=== PATIENT | male | born 1955 | race Caucasian/White ===

== ENCOUNTER 2018-11-27 00:40 | Inpatient (IN) ==
--- NOTE | 2018-11-27 01:02 | Emergency Department Note ---
Disposition Clinical Impression: Cellulitis of left groin Disposition: Admitted As Inpatient Condition: Fair Referrals: Armando Guevara CNP [Primary Care Provider] - Forms: ED Satisfaction Letter Extremity Problem HPI - General Chief complaint: ED General Medical Stated complaint: right toe pain, bilateral leg numbness Time Seen by Provider: 11/27/18 00:54 Source: patient Mode of arrival: private vehicle Limitations: no limitations Nursing Notes Reviewed: Yes Vital Signs Reviewed: Yes - History of Present Illness HPI Narrative: Patient arrives by private vehicle with a history initially of his been having some pain in his legs has been more in the right than left. He states his right toes seem to be somewhat cool and that it has primarily been his feet that have been hurting. He states that pain seems to be worse when he is laying down and that he is not having claudication symptoms. He has not had discoloration or any injury. He states this is currently normal, warm and not hurting. He does go on to explain in the room that he has also been having pain in his left groin for 2-3 days. He has had swelling, redness and some clear drainage. He denies any injury. He denies any difficulty with urination or defecation. He has had questionable fever and some chills. He has not checked his temperature. He has had occasional sweats. He arrives tonight primarily because of the increased pain and swelling in the groin and nothing to do with his legs. With this he denies any pain to the abdomen, nausea or vomiting. He denies chest pain or palpitations. He does have occasional shortness of breath. He denies any peripheral vascular disease or stents. He denies diabetes. He has no other area of redness or swelling. Pt Subjective Complaint: extremity pain, other (Groin swelling) Onset (ago): week(s) (1) Consistency: constant, Worsening Pain Scale: 8 Quality: aching Radiation: none Improves with: rest Worsens with: range of motion, palpation Associated symptoms: Reports: shortness of breath, abdominal pain (The left groin), fever, change in appearance, swelling, redness. Denies: chest pain, back pain, bowel/bladder symptoms, myalgias, arthralgias, rash - Related Data Home Medications Medication Instructions Recorded Confirmed ALPRAZolam [Xanax 1 MG Tablet] 1 mg PO TID 05/31/17 09/10/18 Albuterol Sulfate [Albuterol 2 puff IH Q6HR 05/31/17 09/10/18 Inhaler] Aspirin [Ecotrin] 325 mg PO DAILY 05/31/17 09/10/18 Celecoxib [Celebrex] 200 mg PO DAILY 05/31/17 09/10/18 Cholecalciferol (Vitamin D3) 2 gm MC DAILY 05/31/17 09/10/18 [Cholecalciferol] Gabapentin [Neurontin] 300 mg PO TID 05/31/17 09/10/18 Isosorbide MONOnitrate (24 HR) 60 mg PO BID 05/31/17 09/10/18 [Imdur] Metoprolol Succinate 100 mg PO DAILY 05/31/17 09/10/18 Niacin [Niaspan] 3 cap PO BID 05/31/17 09/10/18 Nitroglycerin [Nitrostat] 0.4 mg SL Q5M PRN 05/31/17 09/10/18 Omeprazole [PriLOSEC] 40 mg PO DAILY 05/31/17 09/10/18 Pravastatin Sodium [Pravachol] 40 mg PO QPM 05/31/17 09/10/18 Ramipril [Altace] 10 mg PO DAILY 05/31/17 09/10/18 Temazepam [Restoril] 30 mg PO HS 05/31/17 09/10/18 Tizanidine HCl 4 mg PO Q8H 05/31/17 09/10/18 amLODIPine [Norvasc] 10 mg PO DAILY 05/31/17 09/10/18 hydroCHLOROthiazide 25 mg PO DAILY 05/31/17 09/10/18 [Hydrochlorothiazide] Previous Rx's Medication Instructions Recorded Cyclobenzaprine [Flexeril] 10 mg PO TID PRN #15 tablet 05/31/17 Naproxen [Naprosyn] 500 mg PO BID PRN #20 tablet 05/31/17 Allergies Allergy/AdvReac Type Severity Reaction Status Date / Time No Known Allergies Allergy Verified 11/27/18 00:41 All systems ED: reviewed and negative except as stated. Past Medical History - Past Medical History Attestation: Yes The following information was validated with the patient. Source: patient, old records reviewed, nursing notes reviewed Medical history: Reports: arthritis, coronary artery disease, GERD, hyperlipidemia, hypertension, migraine, myocardial infarction. Denies: diabetes Surgical history: Reports: angioplasty/stent, cholecystectomy, coronary bypass (CABG), orthopedic, other (Left knee scope.) Psychiatric history: Reports: anxiety - Social History Smoking Status: Former smoker Smokeless Tobacco Status: No Alcohol use: Reports: none Drug use: Reports: none Physical Exam - General Limitations: no limitations General appearance: alert, in no apparent distress - Head Head exam: atraumatic, normocephalic, normal inspection - Eye Eye exam: Present: normal appearance, PERRL, EOMI - ENT ENT exam: normal exam, normal oropharynx, mucous membranes moist - Neck Neck exam: Present: normal inspection, full ROM, trachea midline. Absent: tenderness, meningismus, lymphadenopathy - Chest Chest inspection: Present: normal inspection, symmetric chest wall rise. Absent: tenderness - Respiratory Respiratory exam: Present: normal lung sounds bilaterally. Absent: respiratory distress, wheezes, prolonged expiratory phase - Cardiovascular Cardiovascular exam: Present: regular rate, normal rhythm, tachycardia, normal heart sounds - Abdominal Exam Abdominal exam: Present: soft, Non-Tender, normal bowel sounds. Absent: tenderness, distention, guarding, rebound, rigidity - Extremities Exam Extremities exam: Present: normal inspection, full ROM, normal capillary refill. Absent: tenderness, pedal edema, calf tenderness - Expanded Lower Extremity Exam Hip/Pelvis exam: Present: tenderness, swelling, erythema, other (Patient has induration and swelling in the left groin region. He has some superficial excoriations skin superior and medial to the base of the penis where there appears to have been some serous drainage and crusting. There is no area of fluctuance or definite abscess at this time.). Absent: full ROM Upper leg exam: Present: normal inspection, full ROM. Absent: tenderness, swelling Knee exam: Present: normal inspection, full ROM, knee extension intact. Absent: tenderness, swelling Lower leg exam: Present: normal inspection, full ROM. Absent: tenderness, swelling, dislocation, erythema, palpable cord, Homans' sign Ankle exam: Present: normal inspection, full ROM. Absent: tenderness, swelling Foot/toe exam: Present: normal inspection, full ROM. Absent: tenderness, swelling Neurovascular/Tendon exam: Present: normal capillary refill, other (Bilateral feet are warm without any discoloration.). Absent: pulse deficit (Patient has bounding bilateral dorsalis pedis pulses.), motor deficit, sensory deficit, tendon deficit Gait: antalgic - Back Exam Back exam: Present: normal inspection, full ROM. Absent: tenderness - Neurological Exam Neurological exam: Present: alert, oriented X3 - Psychiatric Psychiatric exam: Present: normal affect, normal mood - Skin Skin exam: Present: warm, dry, intact, normal color. Absent: diaphoresis, pallor Course Course Narrative: 0125: My preliminary review of the CT pelvis is discussed with the patient. He appears to have cellulitis without abscess or Harmeet's gangrene. I recommended IV antibiotics and inpatient observation to show some improvement to the area prior to discharge to home. He is agreeable with this. I am awaiting return of lab work and we will discuss care with Dr. Joseph. 0215: With return of laboratory testing, care has been discussed with Dr. Joseph. Verbal orders have been obtained for his inpatient observation. Dr. Joseph did wish to have him started additionally on Rocephin and this has been ordered for the first dose starting in the emergency department. Vital Signs Temperature 97.9 F 11/27/18 00:42 Pulse Rate 107 11/27/18 00:42 Respiratory Rate 18 11/27/18 00:42 Blood Pressure 152/81 11/27/18 00:42 O2 Sat by Pulse Oximetry 91 11/27/18 00:42 Temperature 97.9 F 11/27/18 00:42 Pulse Rate 107 11/27/18 00:42 Respiratory Rate 18 11/27/18 00:42 Blood Pressure 152/81 11/27/18 00:42 O2 Sat by Pulse Oximetry 91 11/27/18 00:42 Oxygen Delivery Oxygen Delivery Room Air Extremity Problem, Nontraumati - Differential Diagnosis Likely: cellulitis (Abscess, Harmeet's gangrene), occult trauma, arterial vascular disorder - Medical Records Medical records reviewed: Yes I reviewed the patient's medical records. - Lab Data Lab results reviewed: Yes I reviewed the patient's lab results. Result diagrams: 11/27/18 01:30 11/27/18 01:30 Lab Results 11/27/18 11/27/18 11/27/18 Range/Units 01:30 01:30 01:30 WBC 32.2 H* (4.3-11.1) K/mcL RBC 4.66 (4.19-5.50) M/mcL Hgb 13.9 (12.9-16.9) g/dL Hct 40.1 (37.5-50.1) % MCV 86.1 (83.0-100.0) fL MCH 29.8 (28.0-33.3) pg MCHC 34.7 (31.6-35.5) g/dL RDW 12.9 (11.5-14.5) % Plt Count 190 (140-400) K/mcL MPV 9.3 L (9.4-12.4) fL Sodium 132 L (136-145) mEq/L Potassium 3.3 L (3.5-5.1) mEq/L Chloride 98 (98-107) mEq/L Carbon Dioxide 26 (23-29) mEq/L BUN 16 (8-23) mg/dL Creatinine 0.89 (0.70-1.30) mg/dL Est GFR ( Amer) > 60 (> 60) Est GFR (Non-Af Amer) > 60 (> 60) BUN/Creatinine Ratio 18 (6-26) Glucose 162 H (70-105) mg/dL Calculated Osmolality 279 L (280-300) Lactic Acid (0.5-2.2) mmol/L Calcium 8.6 (8.6-10.3) mg/dL Troponin I < 0.03 (< 0.04) ng/mL 11/27/18 Range/Units 01:43 WBC (4.3-11.1) K/mcL RBC (4.19-5.50) M/mcL Hgb (12.9-16.9) g/dL Hct (37.5-50.1) % MCV (83.0-100.0) fL MCH (28.0-33.3) pg MCHC (31.6-35.5) g/dL RDW (11.5-14.5) % Plt Count (140-400) K/mcL MPV (9.4-12.4) fL Sodium (136-145) mEq/L Potassium (3.5-5.1) mEq/L Chloride (98-107) mEq/L Carbon Dioxide (23-29) mEq/L BUN (8-23) mg/dL Creatinine (0.70-1.30) mg/dL Est GFR ( Amer) (> 60) Est GFR (Non-Af Amer) (> 60) BUN/Creatinine Ratio (6-26) Glucose (70-105) mg/dL Calculated Osmolality (280-300) Lactic Acid 1.2 (0.5-2.2) mmol/L Calcium (8.6-10.3) mg/dL Troponin I (< 0.04) ng/mL - Radiology Data Radiology results reviewed: Yes I reviewed the patient's radiology results. CT is performed of the pelvis without IV or oral contrast. This does demonstrate soft tissue swelling and edema in the left groin. This does not involve the scrotal sac and there is no evidence for subcutaneous air or abscess. This is most consistent with a cellulitis. The remainder this study appears normal. This is on my interpretation. Impressions Pelvis CT 11/27/18 01:02 IMPRESSION: 1. Left inguinal cellulitis without soft tissue gas or focal fluid collection. 2. Diverticulosis without scan evidence for diverticulitis. 3. Nonspecific lesion in the left iliac wing. D/ / Brenden Lin MD / Brenden Lin MD Interpreting Provider: Brenden Lin MD - EKG Data EKG attestation: Yes I reviewed and interpreted this EKG. EKG shows normal: sinus rhythm, intervals, QRS complexes, ST-T waves Rate: tachycardia (101) [place]/QRS: right axis deviation Interpretation: no acute changes, nonspecific ST-T wave changes
[2018-11-27] MEDS ORDERED: 0.9 % Sodium Chloride 1,000 ML IVC SCH ×2 (01:15→03:19)
[2018-11-27 02:01] LABS: Hematocrit 40.1 % (37.5-50.1); Hemoglobin 13.9 g/dL (12.9-16.9); Mean Corpuscular HGB Conc 34.7 g/dL (31.6-35.5); Mean Corpuscular Hemoglobin 29.8 pg (28.0-33.3); Mean Corpuscular Volume 86.1 fL (83.0-100.0); Mean Platelet Volume 9.3 fL (9.4-12.4); Platelet Count 190 K/mcL (140-400); Red Blood Count 4.66 M/mcL (4.19-5.50); Red Cell Distribution Width 12.9 % (11.5-14.5)
[2018-11-27] MEDS ORDERED: cefTRIAXone 2,000 MG in 0.9 % Sodium Chloride Mini Bag 100 ML IVPB ONE ×2 (02:06→03:19)
[2018-11-27 02:14] LABS: BUN/Creatinine Ratio 18 (6-26); Blood Urea Nitrogen 16 mg/dL (8-23); Calcium 8.6 mg/dL (8.6-10.3); Carbon Dioxide 26 mEq/L (23-29); Chloride 98 mEq/L (98-107); Glucose 162 mg/dL (70-105); Osmolality,Calculated 279 (280-300); Potassium 3.3 mEq/L (3.5-5.1); Sodium 132 mEq/L (136-145); eGFR For Non-African Americans > 60 (> 60)
[2018-11-27] MEDS ORDERED: *HR* OxyCODONE/APAP 10/325 TABLET PO ONE ×2 (02:17→03:19)
[2018-11-27 02:35] LABS: Dohle Bodies Present (Not Present); Large Platelets Present (Not Present); Lymphocytes # 0.6 K/mcL (0.6-4.6); Neutrophils # 31.6 K/mcL (1.6-8.9); Platelet Estimate Normal (Normal); Toxic Granulation Present (Not Present); Toxic Vacuolation Present (Not Present)
[2018-11-27] MEDS ORDERED: Mag Hydrox/Al Hydrox/Simeth 30 ML UDC PO PRN (03:19)
[2018-11-27] MEDS ORDERED: *HR* HYDROcodone/Acet 5/325 mg TABLET PO PRN (03:19)
[2018-11-27] MEDS ORDERED: Acetaminophen 325 MG TABLET PO PRN (03:19)
[2018-11-27] MEDS ORDERED: *HR* OxyCODONE Immed Rel 5 MG TABLET PO PRN (03:19)
[2018-11-27] MEDS ORDERED: Naloxone 0.4 MG/ML INJ IVP PRN (03:19)
[2018-11-27] MEDS ORDERED: Ondansetron 4 MG/2 ML VIAL IVP PRN (03:19)
[2018-11-27] MEDS ORDERED: MOM Conc 10 ML UD.LIQ PO PRN (03:19)
[2018-11-27] MEDS ORDERED: Albuterol 2.5 MG/3 ML NEBULIZER IH PRN (03:19)
[2018-11-27] MEDS ORDERED: cefTRIAXone 2,000 MG in 0.9 % Sodium Chloride Mini Bag 100 ML IVPB SCH (04:00)
[2018-11-27] MEDS ORDERED: Temazepam 15 MG CAPSULE PO PRN (11:07)
[2018-11-27] MEDS ORDERED: tiZANidine 4 MG TABLET PO PRN (11:07)
--- NOTE | 2018-11-27 11:14 | Internal Med History&Physical ---
Date of Encounter: 11/27/18 Time of Encounter: 10:35 Assessment and Plan (1) Cellulitis of left groin Current visit: Yes Status: Acute He has been started on IV vancomycin and Rocephin. Lactobacillus will be added. (2) Hypertension Current visit: Yes Status: Chronic Continue ACEI, metoprolol, amlodipine, and Imdur. Qualifiers: Hypertension type: essential hypertension Qualified Code(s): I10 - Essential (primary) hypertension (3) DJD (degenerative joint disease) Current visit: Yes Status: Acute He will be given a trial of Naprosyn since Celebrex was not fully effective. Qualifiers: Osteoarthritis location: multiple joints Osteoarthritis type: primary Qualified Code(s): M15.0 - Primary generalized (osteo)arthritis (4) Hypokalemia Current visit: Yes Status: Acute Supplemental potassium will be given and labs rechecked in a.m. HCTZ will be held. (5) CAD (coronary artery disease) Current visit: Yes Status: Acute Continue Imdur and Lopressor. Qualifiers: Coronary Disease-Associated Artery/Lesion type: unspecified vessel or lesion type [place] vs. transplanted heart: [place] heart Associated angina: without angina Qualified Code(s): I25.10 - Atherosclerotic heart disease of [place] coronary artery without angina pectoris Internal Medicine - H&P: HPI Chief complaint: Left groin infection Admitted From: Emergency Dept Plans for Post Hospital Care: Home History of present illness: Mr. Barlow is a 63 year old male who came to emergency room stating he had increasing redness and pain in his left groin onset the evening of November 24. He felt fever but denies chills. He came to emergency room and was evaluated and was found to have significant left groin cellulitis. He had significant leuko cytosis with left shift on differential. He was admitted to MedSurg floor for IV antibiotics and ongoing care needs. Past Med Surg Social Fam HX - Past Medical History Medical history: arthritis, coronary artery disease, GERD, hyperlipidemia, hypertension, migraine, myocardial infarction Psychiatric history: anxiety - Past Surgical History Surgical History: angioplasty/stent, cholecystectomy, coronary bypass (CABG), orthopedic, other Additional surgical history: left knee scope - Social History Smoking Status: Former smoker Smokeless Tobacco Status: No Alcohol use: none Drug use: none Internal Medicine - H&P: Meds ALPRAZolam [Xanax 1 MG Tablet] 1 mg PO TID 05/31/17 [History] Albuterol Sulfate [Albuterol Inhaler] 2 puff IH Q6HR 05/31/17 [History] Aspirin [Ecotrin] 325 mg PO DAILY 05/31/17 [History] Celecoxib [Celebrex] 200 mg PO DAILY 05/31/17 [History] Cholecalciferol (Vitamin D3) [Cholecalciferol] 2 gm MC DAILY 05/31/17 [History] Cyclobenzaprine [Flexeril] 10 mg PO TID PRN #15 tablet 05/31/17 [Rx] Gabapentin [Neurontin] 300 mg PO TID 05/31/17 [History] Isosorbide MONOnitrate (24 HR) [Imdur] 60 mg PO BID 05/31/17 [History] Metoprolol Succinate 100 mg PO DAILY 05/31/17 [History] Naproxen [Naprosyn] 500 mg PO BID PRN #20 tablet 05/31/17 [Rx] Niacin [Niaspan] 3 cap PO BID 05/31/17 [History] Nitroglycerin [Nitrostat] 0.4 mg SL Q5M PRN 05/31/17 [History] Omeprazole [PriLOSEC] 40 mg PO DAILY 05/31/17 [History] Pravastatin Sodium [Pravachol] 40 mg PO QPM 05/31/17 [History] Ramipril [Altace] 10 mg PO DAILY 05/31/17 [History] Temazepam [Restoril] 30 mg PO HS 05/31/17 [History] Tizanidine HCl 4 mg PO Q8H 05/31/17 [History] amLODIPine [Norvasc] 10 mg PO DAILY 05/31/17 [History] hydroCHLOROthiazide [Hydrochlorothiazide] 25 mg PO DAILY 05/31/17 [History] Allergy/AdvReac Type Severity Reaction Status Date / Time No Known Allergies Allergy Verified 11/27/18 00:41 All Systems PM: A 10-system review of systems was performed and is negative for pertinent findings except as documented above in the HPI. Review of systems: Gen.: He states his weight has been stable for several months Cardiovascular: He has hypertension and ASHD status post IN 2004 followed by four-vessel CABG. He has had a total of 5 stents placed. He reports angioplasty a few months ago without additional stent placed. He denies heart failure DVT or pulmonary embolus Respiratory: He smoked for approximate 20 years ending at age 50. He smoked up to 2.5 packs per day. He denies chronic lung disease. He has diagnoses of ALEJANDRA but could not tolerate BiPAP. He uses oxygen at bedtime. GI: He has had cholecystectomy. He denies disorders of his liver or exocrine pancreas : He reports a kidney stone approximately 25 years ago without recurrence. He denies other kidney bladder prostate disorders Neurologic: He denies large distribution strokes or seizures. Endocrine: He has hyperlipidemia but denies diabetes or thyroid disease Hematology/oncology: He denies blood disorders cancers or anemia Psychiatric: He has anxiety but denies depression or other mental health issues [place] skeletal: He has DJD and has had bilateral carpal tunnel surgery. He had left knee arthroscopic evaluation in the past. He denies a diagnosis of gout - Constitutional Vitals: Temp Pulse Resp BP Pulse Ox 97.7 F 88 18 129/73 92 11/27/18 06:29 11/27/18 06:29 11/27/18 06:29 11/27/18 06:29 11/27/18 06:29 Exam: Gen.: He is a well-developed overweight male lying in bed who appears in mild distress complaining of pain in his left groin HEENT: Head is atraumatic and normocephalic. Eyes: EOMI. There is no scleral icterus. Mouth: Mucosa is moist. Neck: Supple and nontender. There is no thyromegaly or adenopathy noted. Heart: Regular without murmurs gallops or ectopics Lungs: No wheezes or crackles are heard. Abdomen: Soft and nontender. No masses or guarding are noted. Extremities: There is no cyanosis edema or clubbing noted. Dorsalis pedis and posterior tibial pulses are 2 over 2 bilaterally. Neurologic: Mental status: He is talkative and a good historian. Cranial nerves: Smile is symmetric. Forehead wrinkles bilaterally. Tongue protrudes midline. EOMI. Motor: There is no pronator drift. Cerebellar: Finger to nose is intact bilaterally. Skin: He has an inflammatory area in his left groin measuring approximately 15 cm maximum diameter. There is erythema, induration and tenderness to palpation. Otherwise skin is warm and dry Internal Med - H&P Results - Labs CBC & Chem 7: 11/27/18 01:30 11/27/18 01:30 Labs: Short CBC 11/27/18 Range/Units 01:30 WBC 32.2 H* (4.3-11.1) K/mcL Hgb 13.9 (12.9-16.9) g/dL Hct 40.1 (37.5-50.1) % Plt Count 190 (140-400) K/mcL Neutrophils # 31.6 H (1.6-8.9) K/mcL BMP 11/27/18 01:30 Sodium 132 L Potassium 3.3 L Chloride 98 Carbon Dioxide 26 BUN 16 Creatinine 0.89 Glucose 162 H Calcium 8.6 Cardiac Enzymes 11/27/18 Range/Units 01:30 Troponin I < 0.03 (< 0.04) ng/mL - Impressions ITS Impressions Pelvis CT 11/27/18 01:02 IMPRESSION: 1. Left inguinal cellulitis without soft tissue gas or focal fluid collection. 2. Diverticulosis without scan evidence for diverticulitis. 3. Nonspecific lesion in the left iliac wing. D/ / Brenden Lin MD / Brenden Lin MD Interpreting Provider: Brenden Lin MD
[2018-11-27] MEDS: Isosorbide MONOnitrate (24 HR) 60 MG TAB.ER.24H PO SCH ×2 (12:40→19:53)
[2018-11-27] MEDS: *HR* OxyCODONE/APAP 10/325 TABLET PO PRN ×2 (12:41→19:53)
[2018-11-27] MEDS: Metoprolol XL (24 HR) Succ 50 MG TAB.ER.24H PO SCH (12:41)
[2018-11-27] MEDS: ALPRAZolam 1 MG TABLET PO SCH ×2 (15:24→19:53)
[2018-11-27] MEDS: Gabapentin 300 MG CAPSULE PO SCH ×2 (15:24→19:53)
[2018-11-28] MEDS: *HR* OxyCODONE/APAP 10/325 TABLET PO PRN ×3 (02:50→17:36)
[2018-11-28] MEDS ORDERED: cefTRIAXone 2,000 MG in Water for inj. (sterile) 20 ML 20 ML IVPB SCH (04:00)
[2018-11-28 06:34] LABS: Basophils # 0.1 K/mcL (0.0-0.2); Basophils % 0.3 %; Eosinophils # 0.1 K/mcL (0.0-0.6); Eosinophils % 0.5 %; Hematocrit 39.3 % (37.5-50.1); Immature Granulocytes % 7.7 % (0-4); Lymphocytes # 0.8 K/mcL (0.6-4.6); Lymphocytes % 3.2 %; Mean Corpuscular HGB Conc 33.1 g/dL (31.6-35.5); Mean Corpuscular Hemoglobin 29.1 pg (28.0-33.3); Mean Corpuscular Volume 88.1 fL (83.0-100.0); Mean Platelet Volume 9.9 fL (9.4-12.4); Monocytes # 1.4 K/mcL (0.0-1.3); Monocytes % 5.3 %; Neutrophils # 21.2 K/mcL (1.6-8.9); Platelet Count 184 K/mcL (140-400); Red Blood Count 4.46 M/mcL (4.19-5.50); Red Cell Distribution Width 13.3 % (11.5-14.5)
[2018-11-28 07:06] LABS: Alanine Aminotransferase 15 Units/L (7-52); Albumin 3.4 g/dL (3.5-5.7); Albumin/Globulin Ratio 1.3 (1.1-2.2); Alkaline Phosphatase 85 Units/L (34-104); Aspartate Amino Transferase 7 Units/L (13-39); BUN/Creatinine Ratio 19 (6-26); Bilirubin,Total 0.6 mg/dL (0.3-1.0); Blood Urea Nitrogen 13 mg/dL (8-23); Calcium 8.6 mg/dL (8.6-10.3); Carbon Dioxide 26 mEq/L (23-29); Chloride 102 mEq/L (98-107); Globulin 2.6 g/dL (2.4-3.5); Glucose 180 mg/dL (70-105); Osmolality,Calculated 285 (280-300); Potassium 3.7 mEq/L (3.5-5.1); Sodium 135 mEq/L (136-145); eGFR For Non-African Americans > 60 (> 60)
[2018-11-28 07:19] LABS: Thyroid Stimulating Hormone 1.955 mcIU/mL (0.340-5.600)
[2018-11-28 07:46] LABS: Anisocytosis 1+ (Not Present); Dohle Bodies Present (Not Present); Platelet Estimate Normal (Normal); Toxic Granulation Present (Not Present); Toxic Vacuolation Present (Not Present)
[2018-11-28] MEDS: Isosorbide MONOnitrate (24 HR) 60 MG TAB.ER.24H PO SCH ×2 (07:52→20:39)
[2018-11-28] MEDS: Metoprolol XL (24 HR) Succ 50 MG TAB.ER.24H PO SCH (07:52)
[2018-11-28] MEDS: amLODIPine 5 MG TABLET PO SCH (07:52)
[2018-11-28] MEDS: Gabapentin 300 MG CAPSULE PO SCH ×3 (07:52→20:39)
[2018-11-28] MEDS: ALPRAZolam 1 MG TABLET PO SCH ×3 (07:52→20:39)
[2018-11-28] MEDS: cefTRIAXone 2,000 MG in Water for inj. (sterile) 20 ML 20 ML IVPB SCH (07:53)
--- NOTE | 2018-11-28 09:30 | Internal Med Progress Note ---
Date of Encounter: 11/28/18 Time of Encounter: 09:20 - Assessment and plan (1) Cellulitis of left groin Current Visit: Yes Status: Acute Assessment and plan: November 28. Continue IV vancomycin and Rocephin with lactobacillus. Culture will be done of the drainage. (2) Hypertension Current Visit: Yes Status: Chronic Assessment and plan: November 28. Continue ACEI, metoprolol, amlodipine, and Imdur. Qualifiers: Hypertension type: essential hypertension Qualified Code(s): I10 - Essent ial (primary) hypertension (3) DJD (degenerative joint disease) Current Visit: Yes Status: Acute Assessment and plan: November 28. Continue Naprosyn scheduled and other analgesics as needed. Qualifiers: Osteoarthritis location: multiple joints Osteoarthritis type: primary Qualified Code(s): M15.0 - Primary generalized (osteo)arthritis (4) Hypokalemia Current Visit: Yes Status: Acute Assessment and plan: November 28. Resolved. Remain off HCTZ and continue to monitor. (5) CAD (coronary artery disease) Current Visit: Yes Status: Acute Assessment and plan: November 28. Continue Imdur, Lopressor, and Effient Qualifiers: Coronary Disease-Associated Artery/Lesion type: unspecified vessel or lesion type [place] vs. transplanted heart: [place] heart Associated angina: without angina Qualified Code(s): I25.10 - Atherosclerotic heart disease of [place] coronary artery without angina pectoris - Subjective Interval history: November 28. He has no new complaints. He states the pain in his left groin has slightly decreased. He has noticed some drainage from the area. - Constitutional Vitals: Temp Pulse Resp BP Pulse Ox 97.9 F 81 18 118/71 95 11/28/18 06:51 11/28/18 06:51 11/28/18 06:51 11/28/18 06:51 11/28/18 06:51 Exam: He is resting comfortably in bed. His left groin shows slight decrease in the induration and erythema. There is a small amount of bloody purulent drainage expressed from the inflamed area. I reviewed his medications and lab results. Internal Medicine: Result - Labs CBC & Chem 7: 11/28/18 06:05 11/28/18 06:05 Labs: Short CBC 11/28/18 Range/Units 06:05 WBC 25.5 H (4.3-11.1) K/mcL Hgb 13.0 (12.9-16.9) g/dL Hct 39.3 (37.5-50.1) % Plt Count 184 (140-400) K/mcL Neutrophils # 21.2 H (1.6-8.9) K/mcL BMP 11/28/18 06:05 Sodium 135 L Potassium 3.7 Chloride 102 Carbon Dioxide 26 BUN 13 Creatinine 0.68 L Glucose 180 H Calcium 8.6 Liver Function 11/28/18 Range/Units 06:05 Total Bilirubin 0.6 (0.3-1.0) mg/dL AST 7 L (13-39) Units/L ALT 15 (7-52) Units/L Alkaline Phosphatase 85 (34-104) Units/L Albumin 3.4 L (3.5-5.7) g/dL Consult Discharge Plan - Plan Referrals: Armando Guevara, COMMUNITY HEALTH ADVISOR [Primary Care Provider] - 1 week
[2018-11-28] MEDS: Lactobacillus 1 EACH CAP.SPRINK PO SCH ×2 (11:26→20:39)
[2018-11-29] MEDS: *HR* OxyCODONE/APAP 10/325 TABLET PO PRN ×4 (00:15→20:07)
[2018-11-29 06:09] LABS: Basophils # 0.1 K/mcL (0.0-0.2); Basophils % 0.5 %; Eosinophils # 0.3 K/mcL (0.0-0.6); Eosinophils % 1.5 %; Hematocrit 37.6 % (37.5-50.1); Hemoglobin 12.2 g/dL (12.9-16.9); Immature Granulocytes % 1.1 % (0-4); Lymphocytes # 0.9 K/mcL (0.6-4.6); Lymphocytes % 5.3 %; Mean Corpuscular HGB Conc 32.4 g/dL (31.6-35.5); Mean Corpuscular Hemoglobin 28.9 pg (28.0-33.3); Mean Corpuscular Volume 89.1 fL (83.0-100.0); Monocytes # 0.9 K/mcL (0.0-1.3); Monocytes % 4.9 %; Neutrophils # 15.4 K/mcL (1.6-8.9); Platelet Count 183 K/mcL (140-400); Red Blood Count 4.22 M/mcL (4.19-5.50); Red Cell Distribution Width 13.3 % (11.5-14.5); Segmented Neutrophils % 86.7 %
[2018-11-29 06:31] LABS: BUN/Creatinine Ratio 17 (6-26); Blood Urea Nitrogen 11 mg/dL (8-23); Calcium 8.5 mg/dL (8.6-10.3); Carbon Dioxide 26 mEq/L (23-29); Chloride 102 mEq/L (98-107); Glucose 166 mg/dL (70-105); Osmolality,Calculated 283 (280-300); Potassium 3.7 mEq/L (3.5-5.1); Sodium 135 mEq/L (136-145); eGFR For Non-African Americans > 60 (> 60)
[2018-11-29] MEDS: Isosorbide MONOnitrate (24 HR) 60 MG TAB.ER.24H PO SCH ×2 (08:37→20:07)
[2018-11-29] MEDS: Metoprolol XL (24 HR) Succ 50 MG TAB.ER.24H PO SCH (08:37)
[2018-11-29] MEDS: amLODIPine 5 MG TABLET PO SCH (08:38)
[2018-11-29] MEDS: Lactobacillus 1 EACH CAP.SPRINK PO SCH ×2 (08:38→20:07)
[2018-11-29] MEDS: cefTRIAXone 2,000 MG in Water for inj. (sterile) 20 ML 20 ML IVPB SCH (08:38)
[2018-11-29] MEDS: ALPRAZolam 1 MG TABLET PO SCH ×3 (08:38→20:07)
[2018-11-29] MEDS: Gabapentin 300 MG CAPSULE PO SCH ×3 (08:38→20:07)
--- NOTE | 2018-11-29 15:27 | Electrocardiograph Report ---
[address] [address] Test Date: 2018-11-28 Pat Name: Cristobal Barlow Department: [id number] Room: [facility] Gender: M Datawarehouse Developer: Kaleb : 1955 Requested By: Elmer Vizcaino Order Number: [id number] Reading MD: Jonathan Tyler Measurements Intervals [place] Rate: 64 P: 48 WI: 181 QRS: -12 QRSD: 110 T: 73 QT: 404 QTc: 414 Interpretive Statements SINUS RHYTHM INCOMPLETE RIGHT BUNDLE BRANCH BLOCK Electronically Signed On 11-29-2018 15:25:09 EDT by Jonathan Tyler
--- NOTE | 2018-11-29 16:11 | Internal Med Progress Note ---
Date of Encounter: 11/29/18 Time of Encounter: 16:03 - Assessment and plan (1) Cellulitis of left groin Current Visit: Yes Status: Acute Assessment and plan: November 28. Continue IV vancomycin and Rocephin with lactobacillus. Culture will be done of the drainage. November 29. Wound culture report pending. WBC has decreased to 17.7. Continue empiric IV Vancomycin and Rocephin with lactobacillus. (2) Hypertension Current Visit: Yes Status: Chronic Assessment and plan: November 28. Continue ACEI, metoprolol, amlodipine, and Imdur. Qualifiers: Hypertension type: essential hypertension Qualified Code(s): I10 - Essential (primary) hypertension (3) DJD (degenerative joint disease) Current Visit: Yes Status: Acute Assessment and plan: November 28. Continue Naprosyn scheduled and other analgesics as needed. Qualifiers: Osteoarthritis location: multiple joints Osteoarthritis type: primary Qualified Code(s): M15.0 - Primary generalized (osteo)arthritis (4) Hypokalemia Current Visit: Yes Status: Acute Assessment and plan: November 28. Resolved. Remain off HCTZ and continue to monitor. (5) CAD (coronary artery disease) Current Visit: Yes Status: Acute Assessment and plan: November 28. Continue Imdur, Lopressor, and Effient Qualifiers: Coronary Disease-Associated Artery/Lesion type: unspecified vessel or lesion type [place] vs. transplanted heart: [place] heart Associated angina: without angina Qualified Code(s): I25.10 - Atherosclerotic heart disease of [place] coronary artery without angina pectoris (6) Anemia Current Visit: Yes Status: Acute Assessment and plan: November 29. Hemoglobin has decreased to 12.2. Check anemia testing and other labs in a.m. Qualifiers: Anemia type: unspecified type Qualified Code(s): D64.9 - Anemia, unspecified - Subjective Interval history: November 28. He has no new complaints. He states the pain in his left groin has slightly decreased. He has noticed some drainage from the area. November 29. He has no new complaints. - Constitutional Vitals: Temp Pulse Resp BP Pulse Ox 97.6 F 76 17 102/55 91 11/29/18 14:34 11/29/18 14:34 11/29/18 14:34 11/29/18 14:34 11/29/18 14:34 Exam: He is resting comfortably in bed. The erythema and induration appears to have slightly lessened since yesterday. There is no significant drainage expressed now on compression around the drainage track. I reviewed his medications and lab results. Internal Medicine: Result - Labs CBC & Chem 7: 11/29/18 05:56 11/29/18 05:56 Labs: Short CBC 11/29/18 Range/Units 05:56 WBC 17.7 H (4.3-11.1) K/mcL Hgb 12.2 L (12.9-16.9) g/dL Hct 37.6 (37.5-50.1) % Plt Count 183 (140-400) K/mcL Neutrophils # 15.4 H (1.6-8.9) K/mcL BMP 11/29/18 05:56 Sodium 135 L Potassium 3.7 Chloride 102 Carbon Dioxide 26 BUN 11 Creatinine 0.65 L Glucose 166 H Calcium 8.5 L Consult Discharge Plan - Plan Referrals: Armando Guevara CASINO SUPERVISOR [Primary Care Provider] - 1 week
[2018-11-30] MEDS ORDERED: Aminoglycoside Consult 1 EACH MC ONE (02:00)
[2018-11-30 02:17] LABS: Basophils # 0.1 K/mcL (0.0-0.2); Basophils % 0.4 %; Eosinophils # 0.3 K/mcL (0.0-0.6); Eosinophils % 2.1 %; Hematocrit 35.3 % (37.5-50.1); Hemoglobin 11.9 g/dL (12.9-16.9); Immature Granulocytes % 1.7 % (0-4); Lymphocytes % 6.8 %; Mean Corpuscular HGB Conc 33.7 g/dL (31.6-35.5); Mean Corpuscular Hemoglobin 29.8 pg (28.0-33.3); Mean Corpuscular Volume 88.5 fL (83.0-100.0); Mean Platelet Volume 9.8 fL (9.4-12.4); Monocytes # 0.8 K/mcL (0.0-1.3); Monocytes % 5.5 %; Neutrophils # 11.6 K/mcL (1.6-8.9); Platelet Count 193 K/mcL (140-400); Red Blood Count 3.99 M/mcL (4.19-5.50); Red Cell Distribution Width 13.6 % (11.5-14.5); Segmented Neutrophils % 83.5 %
[2018-11-30 02:55] LABS: BUN/Creatinine Ratio 19 (6-26); Blood Urea Nitrogen 14 mg/dL (8-23); Calcium 8.7 mg/dL (8.6-10.3); Carbon Dioxide 26 mEq/L (23-29); Chloride 103 mEq/L (98-107); Glucose 134 mg/dL (70-105); Osmolality,Calculated 288 (280-300); Potassium 3.8 mEq/L (3.5-5.1); Sodium 138 mEq/L (136-145); eGFR For Non-African Americans > 60 (> 60)
[2018-11-30] MEDS: *HR* OxyCODONE/APAP 10/325 TABLET PO PRN ×2 (03:58→11:07)
[2018-11-30 07:13] VITALS: BP 110/64
[2018-11-30 08:55] LABS: % Iron Saturation 11 % (20-55); Iron 22 mcg/dL (65-175); Transferrin 137 mg/dL (203-362)
[2018-11-30 09:14] LABS: Ferritin 630 ng/mL (20-250)
--- NOTE | 2018-11-30 09:44 | Discharge Summary ---
Orders not resulted at time of discharge: Pending orders 11/27/18 01:43 Culture,Blood [BC] Stat 11/28/18 10:38 Culture,Wound [RM] Stat Date of Encounter: 11/30/18 Time of Encounter: 09:32 - Discharge Diagnosis (1) Cellulitis of left groin Priority: Primary Status: Acute (2) Hypertension Priority: Secondary Status: Chronic Qualifiers: Hypertension type: essential hypertension Qualified Code(s): I10 - Essential (primary) hypertension (3) DJD (degenerative joint disease) Priority: Secondary Status: Acute Qualifiers: Osteoarthritis location: multiple joints Osteoarthritis type: primary Qualified Code(s): M15.0 - Primary generalized (osteo)arthritis (4) Hypokalemia Priority: Secondary Status: Acute (5) CAD (coronary artery disease) Priority: Secondary Status: Acute Qualifiers: Coronary Disease-Associated Artery/Lesion type: unspecified vessel or lesion type [place] vs. transplanted heart: [place] heart Associated angina: without angina Qualified Code(s): I25.10 - Atherosclerotic heart disease of [place] coronary artery without angina pectoris (6) Anemia Priority: Secondary Status: Acute Qualifiers: Anemia type: unspecified type Qualified Code(s): D64.9 - Anemia, unspecified Hospital course: Mr. Barlow is a 63 year old male who came to emergency room stating he had increasing redness and pain in his left groin onset the evening of November 24. He felt fever but denies chills. He came to emergency room and was evaluated and was found to have significant left groin cellulitis. He had significant leukocytosis with left shift on differential. He was admitted to [facility] floor for IV antibiotics and ongoing care needs. Initial orders were written by the emergency room physician. I saw him on November 27 and performed a history and physical. He started on IV vancomycin and Rocephin empirically in emergency room. Lactobacillus was added. On the second hospital day the inflammatory area developed spontaneous drainage. Wound culture showed growth of staph aureus, likely MRSA. He remained afebrile during his hospitalization. He responded well clinically to antibiotics with WBC decreasing to 13.9 on day of discharge with lessening of left shift on differential. He will continue with antibiotic and probiotic for one week at discharge. Hydrochlorothiazide was discontinued and supplemental potassium was given. Hypokalemia resolved. Blood pressure remained stable off HCTZ and he will remain off this at discharge. Hemoglobin decreased to 11.9 on day of discharge. Anemia testing showed iron 22, transferrin saturation 11%, transferrin 137, ferritin 630, B12 383, and folate 14.0. A trial of ferrous sulfate with ascorbic acid will be ordered and his PCP can monitor labs. Use of aspirin, Effient, and NSAIDs is felt to be the likely cause of the anemia. He will follow with his PCP Armando Guevara CNP within 1 week. - Time Spent with Patient Total time spent providing and/or coordinating discharge services: - Discharge Medications Prescriptions: New Sulfamethoxazole/Trimeth DS [Bactrim DS] 1 each PO BID #14 tablet Lactobacillus [Culturelle] 1 each PO BID #14 cap.sprink Doxycycline 100 mg PO BID #14 capsule Oxycodone HCl/Acetaminophen [Percocet 5-325 mg Tablet] 1 each PO Q6H PRN 5 Days #20 tablet PRN Reason: Pain Ferrous Sulfate 325 mg PO DAILY #30 tablet Ascorbic Acid [Vitamin C] 500 mg PO DAILY #30 tablet Continued Temazepam [Restoril] 30 mg PO HS Nitroglycerin [Nitrostat] 0.4 mg SL Q5M PRN PRN Reason: Chest Pain ALPRAZolam [Xanax 1 MG Tablet] 1 mg PO TID Pravastatin Sodium [Pravachol] 40 mg PO QPM Omeprazole [PriLOSEC] 40 mg PO DAILY Metoprolol Succinate 100 mg PO DAILY Gabapentin [Neurontin] 300 mg PO TID Isosorbide MONOnitrate (24 HR) [Imdur] 60 mg PO BID Aspirin [Ecotrin] 325 mg PO DAILY amLODIPine [Norvasc] 10 mg PO DAILY Ramipril [Altace] 10 mg PO DAILY Niacin [Niaspan] 3 cap PO BID Albuterol Sulfate [Albuterol Inhaler] 2 puff IH Q6HR Tizanidine HCl 4 mg PO Q8H Cholecalciferol (Vitamin D3) [Cholecalciferol] 2 gm MC DAILY Cyclobenzaprine [Flexeril] 10 mg PO TID PRN #15 tablet PRN Reason: Pain Naproxen [Naprosyn] 500 mg PO BID PRN #20 tablet PRN Reason: Pain Prasugrel [Effient] 10 mg PO DAILY Discontinued Celecoxib [Celebrex] 200 mg PO DAILY hydroCHLOROthiazide [Hydrochlorothiazide] 25 mg PO DAILY Home Medications: ALPRAZolam [Xanax 1 MG Tablet] 1 mg PO TID 05/31/17 [History] Albuterol Sulfate [Albuterol Inhaler] 2 puff IH Q6HR 05/31/17 [History] Aspirin [Ecotrin] 325 mg PO DAILY 05/31/17 [History] Cholecalciferol (Vitamin D3) [Cholecalciferol] 2 gm MC DAILY 05/31/17 [History] Cyclobenzaprine [Flexeril] 10 mg PO TID PRN #15 tablet 05/31/17 [Rx] Gabapentin [Neurontin] 300 mg PO TID 05/31/17 [History] Isosorbide MONOnitrate (24 HR) [Imdur] 60 mg PO BID 05/31/17 [History] Metoprolol Succinate 100 mg PO DAILY 05/31/17 [History] Naproxen [Naprosyn] 500 mg PO BID PRN #20 tablet 05/31/17 [Rx] Niacin [Niaspan] 3 cap PO BID 05/31/17 [History] Nitroglycerin [Nitrostat] 0.4 mg SL Q5M PRN 05/31/17 [History] Omeprazole [PriLOSEC] 40 mg PO DAILY 05/31/17 [History] Pravastatin Sodium [Pravachol] 40 mg PO QPM 05/31/17 [History] Ramipril [Altace] 10 mg PO DAILY 05/31/17 [History] Temazepam [Restoril] 30 mg PO HS 05/31/17 [History] Tizanidine HCl 4 mg PO Q8H 05/31/17 [History] amLODIPine [Norvasc] 10 mg PO DAILY 05/31/17 [History] Prasugrel [Effient] 10 mg PO DAILY 11/28/18 [History] Ascorbic Acid [Vitamin C] 500 mg PO DAILY #30 tablet 11/30/18 [Rx] Doxycycline 100 mg PO BID #14 capsule 11/30/18 [Rx] Ferrous Sulfate 325 mg PO DAILY #30 tablet 11/30/18 [Rx] Lactobacillus [Culturelle] 1 each PO BID #14 cap.sprink 11/30/18 [Rx] Oxycodone HCl/Acetaminophen [Percocet 5-325 mg Tablet] 1 each PO Q6H PRN 5 Days #20 tablet 11/30/18 [Rx] Sulfamethoxazole/Trimeth DS [Bactrim DS] 1 each PO BID #14 tablet 11/30/18 [Rx] Allergies/Adverse Reactions: Allergy/AdvReac Type Severity Reaction Status Date / Time No Known Allergies Allergy Verified 11/27/18 00:41 Date of admission: 11/27/18 11:05 Primary care physician: Armando Guevara CNP - Constitutional Vitals: Temp Pulse Resp BP Pulse Ox 98.3 F 101 19 110/64 92 11/30/18 07:08 11/30/18 07:08 11/30/18 07:08 11/30/18 07:08 11/30/18 07:08 - Patient Status Disposition: Home, Self-Care Condition: Fair - Discharge Instructions Follow Up With: Armando Guevara CNP [Primary Care Provider] - 1 week - Diet and Activity Activity: resume usual activities as tolerated Diet: advance to your usual diet
[2018-11-30] MEDS: amLODIPine 5 MG TABLET PO SCH (11:07)
[2018-11-30] MEDS: Metoprolol XL (24 HR) Succ 50 MG TAB.ER.24H PO SCH (11:07)
[2018-11-30] MEDS: Isosorbide MONOnitrate (24 HR) 60 MG TAB.ER.24H PO SCH (11:07)
[2018-11-30] MEDS: Lactobacillus 1 EACH CAP.SPRINK PO SCH (11:07)
[2018-11-30] MEDS: Gabapentin 300 MG CAPSULE PO SCH (11:07)
[2018-11-30] MEDS: ALPRAZolam 1 MG TABLET PO SCH (11:08)
[2018-11-30] MEDS: cefTRIAXone 2,000 MG in Water for inj. (sterile) 20 ML 20 ML IVPB SCH (11:08)
== END 2018-11-30 12:06 | disposition home or self-care (01) | DRG 603 ==
LOC: EMEROOPIK 00:40 → INPPIK 00:40
PROVIDERS: ADMIT Internal Medicine; ATTEND Internal Medicine